=== PATIENT | female | born 1960 | race African-American/Black ===

== ENCOUNTER 2023-05-03 14:25 | Emergency (ER) | payer BC ==
[2023-05-03] MEDS ORDERED: predniSONE 20 MG TAB ONE (16:01)
[2023-05-03] MEDS ORDERED: Cyclobenzaprine 10 MG TAB ONE (16:01)
[2023-05-03 17:22] LABS: Bilirubin Neg (Negative); Blood, Urine 10 (Negative); Clarity Clear (Clear); Glucose, Urine (Dipstick) Normal (Negative); Ketone, Urine Negative (Negative); Leukocyte Negative (Negative); Nitrite Negative (Negative); Protein, Urine (Dipstick) Negative (Neg-Trace); Specific Gravity, Urine 1.015 (1.005-1.030); Urobilinogen Normal mg/dL (Less than 2); pH, Urine 6.5 (5.0-9.0)
[2023-05-03 17:46] LABS: Bacteria/HPF Rare-Few HPF (None Seen); CAUTI Indications for Culture Pelvic or flank pain; RBC/HPF 0-3 HPF (0-3); Squamous Epithelial 0-3 HPF (0-3); Urine Culture Reflex No No; WBC/HPF None Seen HPF (0-3)
== END 2023-05-03 18:10 | disposition home or self-care (01) ==
LOC: CSHERS 14:25
DX: M54.50 Low back pain, unspecified (principal); M25.551 Pain in right hip; R10.30 Lower abdominal pain, unspecified; I10 Essential (primary) hypertension
CPT/HCPCS: 81001; J7512